=== PATIENT | male | born 1960 | race Caucasian/White ===

== ENCOUNTER 2021-12-23 09:46 | Outpatient (REF) | payer MEDICAID, SELFPAY ==
--- NOTE | ~2021-12-23 | XR_ITS ---
EXAMINATION: XR knee RT 4V, XR knee LT 4V CLINICAL INFORMATION: Reason for Exam PAIN COMPARISON: None available at the time of this dictation. TECHNIQUE: frontal, lateral, tunnel and patella sunrise views FINDINGS: BONES: There is cortical deformity in the proximal diaphysis of the right fibula, 2.2 cm, which could be posttraumatic i.e. old healed injury versus bone lesion. Limited evaluation on this knee x-ray seen at the margin of the study. JOINTS: Narrowing of joint spaces and developed osteophytes from the edges of articular surfaces suggest degenerative osteoarthritis. There is no joint effusion. 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 *Bone cortical deformity proximal diaphysis right femur concerning for possible BONE LESION versus old injury. Would recommend correlation with patient history, if no prior known fracture at this location would recommend further investigation with x-ray tibia-fibula and bone scan or contrast-enhanced MRI. (Referring physician staff is being called, to be alerted of the above findings and recommendations.) KP
--- NOTE | ~2021-12-23 | XR_ITS ---
EXAMINATION: XR knee RT 4V, XR knee LT 4V CLINICAL INFORMATION: Reason for Exam PAIN COMPARISON: None available at the time of this dictation. TECHNIQUE: frontal, lateral, tunnel and patella sunrise views FINDINGS: BONES: There is cortical deformity in the proximal diaphysis of the right fibula, 2.2 cm, which could be posttraumatic i.e. old healed injury versus bone lesion. Limited evaluation on this knee x-ray seen at the margin of the study. JOINTS: Narrowing of joint spaces and developed osteophytes from the edges of articular surfaces suggest degenerative osteoarthritis. There is no joint effusion. 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 *Bone cortical deformity proximal diaphysis right femur concerning for possible BONE LESION versus old injury. Would recommend correlation with patient history, if no prior known fracture at this location would recommend further investigation with x-ray tibia-fibula and bone scan or contrast-enhanced MRI. (Referring physician staff is being called, to be alerted of the above findings and recommendations.) KP
== END 2021-12-23 09:47 | disposition home or self-care (01) ==
LOC: HO.XRAY 09:46
PROVIDERS: PCP Internal Medicine; Visit Provider Internal Medicine
DX: G89.29 Other chronic pain (principal); M25.562 Pain in left knee
CPT/HCPCS: 73564

== ENCOUNTER → 2022-01-23 14:55 | Outpatient (BNVA) | payer MEDICAID, SELFPAY | PROVIDERS: PCP Internal Medicine; Visit Provider Surgery | DX: K40.20 Bilateral inguinal hernia, without obstruction or gangrene, not specified as recurrent (principal) | CPT/HCPCS: 99202 ==

== ENCOUNTER 2022-02-17 08:43 | Day surgery (SDC) | payer MEDICAID, SELFPAY ==
--- NOTE | 2022-02-14 10:03 | HO.ANESPROP2 ---
Documented by User: Cristina Reina NP 02/14/22 10:04 HPI - Anesthesia Eval Consult details Narrative: 62yo M for Bilateral?Hernia Repair Inguinal PMFSH Active Problems Active Problems: All Active Problems (Updated 01/23/22 @ 16:26 by Nakul Dunne MD) Bilateral inguinal hernia (Acute) Past Medical History Medical History COPD (chronic obstructive pulmonary disease) HLD (hyperlipidemia) HTN (hypertension) Surgical History Surgical History History of dental surgery History of excision of mass History of exploratory laparotomy History of wisdom tooth extraction Social History Social History Alcohol intake: never Patient Tobacco Use Status: Never used Tobacco Use of substances other than those prescribed or required for medical reasons: Yes Have you been hit, kicked, punched, or otherwise hurt by someone within the past year? If so, by whom?: No Are you DNR?: No Advance Directives: No Advance Directives Information Provided: Yes Meds Allergies Allergy/AdvReac Type Severity Reaction Status Date / Time No Known Allergies Allergy Unverified 01/23/22 15:05 Home Medications Medication Instructions Recorded Confirmed Last Taken Type acetaminophen 500 mg tablet 500 mg PO Q8H PRN 01/23/22 01/23/22 Unknown History amlodipine 10 mg tablet 10 mg PO DAILY 01/23/22 01/23/22 Unknown History atenolol 25 mg tablet 12.5 mg PO DAILY 01/23/22 01/23/22 Unknown History clonazepam 1 mg tablet 1 mg PO BEDTIME 01/23/22 01/23/22 Unknown History divalproex 500 mg tablet,extended 500 mg PO DAILY 01/23/22 01/23/22 Unknown History release 24 hr sertraline 100 mg tablet 100 mg PO QAM 01/23/22 01/23/22 Unknown History simvastatin 10 mg tablet 10 mg PO BEDTIME 01/23/22 01/23/22 Unknown History Exam Exam Date and Time: February 14, 2022 1003 Assessment and Plan Assessment Anesthesia Assessment: Chart Reviewed Documented by User: Jeri Hardy MD 02/17/22 12:29 [facility] Past Medical History Medical History COPD (chronic obstructive pulmonary disease) HLD (hyperlipidemia) HTN (hypertension) Surgical History Surgical History History of dental surgery History of excision of mass History of exploratory laparotomy History of wisdom tooth extraction History of Problems with Anesthesia: No Social History Social History Alcohol intake: never Patient Tobacco Use Status: Never used Tobacco Use of substances other than those prescribed or required for medical reasons: Yes Have you been hit, kicked, punched, or otherwise hurt by someone within the past year? If so, by whom?: No Are you DNR?: No Advance Directives: No Advance Directives Information Provided: Yes Meds Allergies Allergy/AdvReac Type Severity Reaction Status Date / Time No Known Allergies Allergy Unverified 01/23/22 15:05 Home Medications Medication Instructions Recorded Confirmed Last Taken Type acetaminophen 500 mg tablet 500 mg PO Q8H PRN 01/23/22 01/23/22 Unknown History amlodipine 10 mg tablet 10 mg PO DAILY 01/23/22 01/23/22 Unknown History atenolol 25 mg tablet 12.5 mg PO DAILY 01/23/22 01/23/22 Unknown History clonazepam 1 mg tablet 1 mg PO BEDTIME 01/23/22 01/23/22 Unknown History divalproex 500 mg tablet,extended 500 mg PO DAILY 01/23/22 01/23/22 Unknown History release 24 hr sertraline 100 mg tablet 100 mg PO QAM 01/23/22 01/23/22 Unknown History simvastatin 10 mg tablet 10 mg PO BEDTIME 01/23/22 01/23/22 Unknown History Exam Airway Mallampati Class: II TM Dist: >3cm Neck ROM: Full Loose/Missing/Broken Teeth: Yes and Upper Heart: RRR Lungs: CTA Assessment and Plan Assessment Anesthesia Assessment: Anesthesia Plan Discussed Final Anesthetic Review History of Problems with Anesthesia: No NPO: Yes ASA Class: II Final Preanesthetic Review: Meds/Allgs Chart Reviewed, Consent Obtained/Reviewed and Anes Risks/Benef Reviewed Patient Risk: Low Procedure Risk: Low Anesthetic Plan Anesthetic Plan: GA Disposition: Standard PACU
[2022-02-17] VITALS (7 sets, daily range): BP systolic 117–131; BP diastolic 57–80; PULSE 49–69; RESP 16–20; TEMP 36.1–36.8; O2SAT 94–99; BMI 27.7
--- NOTE | 2022-02-17 11:02 | MHC.SHP ---
Pre-Procedural Eval Section A Date of Service: 02/17/22 The patient is an INPATIENT: No Changes since office visit: Yes Patient answered all questions; No Cold of Flu in the past 2 weeks, No New Medical Problems and No Changes in Medication The History & Physical has been completed within 30 days and I have reviewed it.: Yes Section B Chief Complaint: hernia Allergies: Allergies Allergy/AdvReac Type Severity Reaction Status Date / Time No Known Allergies Allergy Unverified 01/23/22 15:05 Plan Diagnosis/Plan: Unchanged I have reviewed the history and physical and performed a pertinent physical examination on my patient. No changes have occurred unless specified.
--- NOTE | 2022-02-17 13:00 | W.PM.OPN ---
Operative Note Operative Note Date of Service: 02/17/22 Narrative: Preoperative diagnosis: Bilateral inguinal hernias Postoperative diagnosis: same Procedure: repair of bilateral inguinal hernias with Surgeon: Nakul Dunne MD Cash Applications Specialist: Myrna Porras PA-C; PALMER Ga Anesthesia: general LMA Indications for procedure: 62-year-old male patient presenting with palpable hernias bilaterally causing some mild discomfort which increases with lifting and straining. Examination is consistent bilateral inguinal hernias. Operative findings: Bilateral direct inguinal hernias repaired with large PHS bilaterally. Specimen: Lipoma of the cord left side Estimated blood loss: 15 mL Complications: none Procedure details: patient was brought to the OR placed in a supine position. After administering general anesthesia patient's lower abdomen was prepped with ChloraPrep and draped in a sterile fashion. A surgical time-out was called and the consent confirmed. Patient received preoperative antibiotics and Venodyne boots were in place. Local anesthesia consisting of 1% lidocaine with epinephrine was then infiltrated over the left inguinal ligament. Incision was then made with a scalpel carried out through subcutaneous tissue, past Renata's fascia and up to the external oblique aponeurosis. This was then incised with a scalpel wide with the Metzenbaum scissors. The spermatic cord was then dissected free from the surrounding inguinal canal and retracted using a Omar drain. Floor of the inguinal canal was found to be weak with a direct hernia. Fibers of the previous therapy muscle were and a small lipoma of the cord identified. This was dissected free from the surrounding cord structures and ligated. This was then sent to pathology for pathologic evaluation. Attention was then directed to the floor of the inguinal canal which was grasped with Allis clamps. The internal oblique and transversalis aponeurosis was then incised with electrocautery. The preperitoneal space was then entered. This was then widened using a open Ray-Latanya sponge. A large PHS mesh was then obtained. The circular underlay was then deployed within the preperitoneal space. The overlay was then secured to the pubic tubercle, conjoined tendon, and inguinal ligament using a 0 Polysorb suture. A slit was made in the mesh in the mesh wrapped around the spermatic cord at the internal ring. This was then secured to the shelving edge using the 0 Polysorb suture. Wounds were then irrigated with saline solution suctioned dry. 4 mL of Zenrelef was then applied over the mesh. The external oblique aponeurosis was then reapproximated using a running 2 0 Polysorb suture additional 4 mL of Zenrelef was then applied over the external oblique aponeurosis. This was then closed over by the interrupted 3-0 Polysorb sutures in the Renata's fascia. Dermis was reapproximated using interrupted 3-0 Polysorb sutures. Skin was closed using a running subcuticular 4-0 Polysorb suture. Attention was then directed to the right inguinal region. Local was infiltrated into the skin over the inguinal ligament. Incision was then made with a scalpel carried out through subcutaneous tissue past Renata's fashion up to the external oblique aponeurosis. The external oblique aponeurosis was then incised with a scalpel wide with the Metzenbaum scissors. The spermatic cord was then dissected free from the surrounding inguinal canal and retracted using a Vasu drain. Once again a direct inguinal hernia was identified. Fibers of the cremasteric muscle were in no indirect hernia could be identified. Fibers of the transversalis and internal oblique aponeurosis was then incised and a preperitoneal space identified. This was widened using a open Ray-Latanya sponge. A large PHS mesh was then obtained and the circular underlay deployed within the preperitoneal space. The overlay was then secured to the pubic tubercle, conjoined tendon, and shelving edge of the inguinal ligament using a 0 Polysorb suture. A slit was made in the mesh in the mesh wrapped around the spermatic cord at the internal ring. This was secured to the shelving edge of the inguinal ligament using a 0 Polysorb suture. Wounds were irrigated with saline solution and suctioned dry. 4 mL of Zenrelef applied over the mesh. External oblique aponeurosis was then closed using a running 2 0 Polysorb suture. An additional 4 mL of Zenrelef was then applied over the external oblique aponeurosis. Renata's fascia was then closed using interrupted 3-0 Polysorb sutures. Dermis was reapproximated using interrupted 3-0 Polysorb sutures. Skin was then closed using a running subcuticular 4-0 Polysorb suture. Sterile dressings consisting of Steri-Strips, 2 x 2 gauze and Tegaderm were then applied. The patient tolerated the procedure well. Sponge, instrument, and needle counts reported as correct. The patient was transferred to PACU in stable condition.
== END 2022-02-17 15:02 | disposition home or self-care (01) ==
PROVIDERS: PCP Internal Medicine; Visit Provider Surgery
PROC: (CPT 49505; principal; 2022-02-17 10:20)
DX: K40.20 Bilateral inguinal hernia, without obstruction or gangrene, not specified as recurrent (principal); D17.6 Benign lipomatous neoplasm of spermatic cord; J44.9 Chronic obstructive pulmonary disease, unspecified; E78.5 Hyperlipidemia, unspecified; I10 Essential (primary) hypertension; Z79.899 Other long term (current) drug therapy; Z98.890 Other specified postprocedural states
CPT/HCPCS: 49505; 88302; 88304; C1781; C9088; J0131; J0690; J1100; J1885; J2250; J2405; J3010

== ENCOUNTER 2023-05-07 08:22 | Outpatient (REF) | payer MEDICAID, SELFPAY ==
[2023-05-07 14:58] LABS: Cholesterol 140 mg/dL (<200); HDL Cholesterol 43 mg/dL (>40); LDL Cholesterol Calculated 86 mg/dL (<100); Triglycerides 57 mg/dL (<150)
== END 2023-05-07 08:23 | disposition home or self-care (01) ==
LOC: HO.CHCLDS 08:22
PROVIDERS: Visit Provider Internal Medicine
DX: E78.00 Pure hypercholesterolemia, unspecified (principal)
CPT/HCPCS: 36415; 80061

== ENCOUNTER 2024-05-20 09:02 | Outpatient (REF) | payer OTHER, SELFPAY ==
[2024-05-20 14:11] LABS: MANUAL DIFF FLAG NO
[2024-05-20 14:15] LABS: Basophils Absolute Auto 0.1 X10*3/uL (0.0-0.2); Basophils Percent Auto 0.8 % (0-2); Eosinophils Absolute Auto 0.1 X10*3/uL (0.0-0.4); Eosinophils Percent Auto 0.9 % (0-4); Hemoglobin 14.8 g/dl (14.0-18.0); Imm Gran Abs Auto 0.02 X10*3/uL (0.00-0.03); Imm Gran Pct Auto 0.3 % (0.0-0.4); Lymphocytes Absolute Auto 0.8 X10*3/uL (1.2-4.9); Lymphocytes Percent Auto 11.5 % (20-40); Mean Corpuscular HGB Conc 33.6 g/dl (31.0-36.0); Mean Corpuscular Hemoglobin 31.2 pg (27.0-33.0); Mean Corpuscular Volume 92.6 fL (80.0-98.0); Mean Platelet Volume 11.8 fL (9.4-12.4); Monocytes Absolute Auto 0.6 X10*3/uL (0.1-1.2); Monocytes Percent Auto 9.6 % (2-11); Neutrophils Percent Auto 76.9 % (45-73); Platelet Count 244 X10*3/uL (160-400); Red Blood Count 4.75 X10*6/uL (4.60-5.80); Red Cell Distribution Width 12.6 % (11.0-16.0); White Blood Count 6.5 X10*3/uL (4.8-10.8)
[2024-05-20 14:35] LABS: Alanine Aminotransferase 19 U/L (0-40); Alkaline Phosphatase 47 U/L (39-117); Anion Gap 9 (12-20); Aspartate Amino Transferase 17 U/L (5-37); Bilirubin Total 0.4 mg/dL (0.0-1.0); Blood Urea Nitrogen 19 mg/dL (9-16); Calcium 9.3 mg/dL (8.4-10.2); Carbon Dioxide 29 mmol/L (22-29); Chloride 105 mmol/L (96-108); Cholesterol 168 mg/dL (<200); Estimated Glomerular Filt Rate > 60; Glucose Random 82 mg/dL (60-115); HDL Cholesterol 46 mg/dL (>40); LDL Cholesterol Calculated 112 mg/dL (<100); Sodium 139 mmol/L (135-145); Total Protein 6.8 g/dL (6.5-8.0); Triglycerides 51 mg/dL (<150)
== END 2024-05-20 09:03 | disposition home or self-care (01) ==
LOC: HO.CHCLDS 09:02
PROVIDERS: Visit Provider Internal Medicine
DX: I10 Essential (primary) hypertension (principal); E78.00 Pure hypercholesterolemia, unspecified
CPT/HCPCS: 36415; 80053; 80061; 85025; 95250

== ENCOUNTER 2024-07-25 14:32 | Outpatient (AMB) | payer MEDICAID, SELFPAY ==
--- NOTE | 2024-07-25 14:31 | A.OFFVIS_ITS ---
Vital Signs 07/25/24 14:44 Height 5 ft 9.5 in Weight 194 lb 6 oz BMI 28.3 BP 170/82 H Blood Pressure Location Lt brachial Position Sitting Pulse 59 Intake Visit Reasons: Thrombosed Hemorrhoids Intake Note: This patient presents for Thrombosed Hemorrhoids. Pt c/o; onset 3 wks, burning sensation to the touch, has a hard lump in the area, denies any concenrs with the bm, no bleeding denies n/v/d/c Communication Skills Instructor Required: No Accompanied by: Self / Same As Patient Allergies No Known Allergies Allergy (Unverified 07/25/24 14:33) Medication List - Last Reconciled 07/25/24 by Bernard Rosenthal MD atenolol 12.5 mg PO DAILY clonazepam 1 mg PO BEDTIME divalproex ER 500 mg PO DAILY sertraline 50 mg PO DAILY simvastatin 10 mg PO BEDTIME HPI HPI Thrombosed Hemorrhoids: Details: 64-year-old male referred for thrombosed hemorrhoids. He says that about 3 weeks ago, he has noticed this hard lump outside his anus. He says that this was not tender or painful. He denies bleeding either. He denies being constipated He says that the lump has persisted. He says that really does not bother him but he wanted this checked as he was concerned that this may be a ?cancer?. [facility] Medical History (Updated 07/25/24 @ 14:52 by Bernard Rosenthal MD) Thrombosed external hemorrhoid HLD (hyperlipidemia) HTN (hypertension) COPD (chronic obstructive pulmonary disease) Surgical History History of dental surgery History of wisdom tooth extraction History of excision of mass History of exploratory laparotomy Social History Alcohol intake: never Patient Tobacco Use Status: Never used Tobacco Review of Systems Const Denies chills and Denies fever(s) Card Denies chest pain, Denies dyspnea and Denies dyspnea on exertion Resp Denies cough, Denies dyspnea and Denies dyspnea on exertion GI Denies hematochezia and Denies change in bowel habits Denies hematuria and Denies difficulty urinating Musc Denies back pain and Denies limited range of motion Neuro Denies focal weakness and Denies convulsions Psych Denies depression and Denies mood swings Physical Exam Vital Signs: Last Vital Signs Pulse 59 07/25/24 14:44 BP 170/82 H 07/25/24 14:44 BMI result Body Mass Index 28.3 Const General: comfortable and no acute distress Orientation/consciousness: patient oriented x3 Neck Neck: Yes no lymphadenopathy Resp Auscultation: clear to auscultation bilaterally Cardio Rhythm: regular rhythm GI Other: Rectal exam shows a firm external hemorrhoid well-defined, nontender, on the left side at the verge, that appeared to be consistent with a thrombosed external hemorrhoid. He also has other external hemorrhoids that are nonthrombosed Palpation (GI): Soft to palpation, nontender and no guarding Neuro General: patient oriented x3 Assessment & Plan Assessment & Plan (1) Thrombosed external hemorrhoid: Code(s): K64.5 - Perianal venous thrombosis Category: Medical Plan: Current exam suggests a thrombosed external hemorrhoid on the left side at the anal verge. I explained to him about this findings . This is well-defined. The is nontender. I advised him to do some warm soaks to the area to hasten resorption. I told him that I will see him again in about 6- 8 weeks to see how this is coming along. He says that this hemorrhoid does not bother him. He is comfortable with the plan. Coding Level of Care Code New Pt Level 3 (78875) Diagnoses Thrombosed external hemorrhoid K64.5
--- OUTSIDE RECORDS SUMMARY | 2024-07-25 14:33 | XMS_ITS | Continuity of Care Document ---
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 Engine Mechanic Name Role Phone Romana RANDOLPH, Kylah Primary Care Physician [id number] Date(s): 06/16/24 - 07/16/24 [facility] [address] [id number] Attending Physician: Magnolia Garcia Admitting Physician: Magnolia Garcia Referring Physician: Magnolia Garcia Encounter Type: Triage Allergies, Adverse Reactions, Alerts No Known Allergies Medications atenolol 25 mg oral tablet TAKE 1/2 TABLET BY MOUTH EVERY DAY Start Date: 04/01/24 Status: Ordered Repeat number: 1 clonazePAM 1 mg oral tablet TAKE ONE TABLET EVERY DAY NEEDED AGITATION Start Date: 04/01/24 Status: Ordered Repeat number: 1 divalproex sodium 250 mg oral tablet, extended release TAKE ONE TABLET EVERY NIGHT AT BEDTIME Start Date: 04/01/24 Status: Ordered Repeat number: 1 left wrist carpal tunnel syndrome left wrist carpal tunnel syndrome, See Instructions, # 1 kit, Refills 0, Tot. Refills 0, Maintenance, Rotate on and off every 2 hours while awake., 12/11/23 3:32:00 PM EDT, Supply Start Date: 12/11/23 Status: Ordered Quantity: 1.0 Unit: kit Repeat number: 1 PEG-3350 with Electrolytes [place] (Eqv-GoLYTELY) oral powder for reconstitution 240 mL, By Mouth, Every 15 minutes, until 4 liters are consumed or the rectal effluent is clear, # 4,000 mL, 0 Refills, Maintenance, 09/30/24 9:00:00 AM EST, REC Powder, [facility], Partial fill upon patient request if the prescription is for a schedule II opioid drug., 240 mL By Mouth Every 15 minutes,Instr:until 4 liters are consumed or the rectal effluent is clear, 85.2, kg, 04/01/24 10:39:00 EDT, Dry Weight Start Date: 09/30/24 Status: Ordered Quantity: 4000.0 Unit: mL Repeat number: 1 simvastatin 10 mg oral tablet TAKE ONE TABLET AT BEDTIME Start Date: 04/01/24 Status: Ordered Repeat number: 1 venlafaxine 150 mg oral capsule, extended release 1 capsule = 150 mg, TAKE ONE CAPSULE ONCE DAILY Start Date: 04/01/24 Status: Ordered Repeat number: 1 Problem List Condition Confirmation Course Effective Dates Status Health St [facility] Informant Anxiety Confirmed Active COPD (chronic obstructive pulmonary disease) Confirmed Active HTN (hypertension) Confirmed Active Social History Social History Type Response Smoking Status Smoker, current stat us unknown; Other: quit 2010; entered on: 04/01/24 Sex Sex Representation Male (finding) Patient Care team information Care Team Personnel Name: Kylah Avendano MD Position: [facility] Outreach Member Role: PCP Address: [address] [place] [address] Telecom: Care Team Related Persons Name: ANTONY MEZA Insurance Providers Guarantor name: SAMANTHA Health Plan Information #: 1 Payer: [employer] Member Number: NA Policy Number: NA Group Number: NA
--- OUTSIDE RECORDS SUMMARY | 2024-07-25 14:33 | XMS_ITS | Continuity of Care Document ---
Author Organization [facility] Address [address] [facility], [address] Floor, [address] [place] [id number]- Care Team Providers Care Attendant Child Activity Name Role Phone Romana RANDOLPH, Kylah Primary Care Physician Encounter [facility] [id number] Date(s): 06/16/24 - 07/16/24 [facility] [address], [address] [place] [id number]- Attending Physician: Magnolia Garcia Admitting Physician: Magnolia [...] kit Repeat number: 1 PEG-3350 with Electrolytes [place] (Eqv-GoLYTELY) oral powder for reconstitution 240 mL, By Mouth, Every 15 minutes, until 4 liters are consumed or the rectal effluent is clear, # 4,000 mL, 0 Refills, Maintenance, 09/30/24 9:00:00 AM EST, REC Powder, [facility], Partial fill upon patient [...] Team Personnel Name: Kylah Avendano MD Position: [facility] Outreach Member Role: PCP Address: [address] [place] [id number] Telecom: Care Team Related Persons Name: ANTONY MEZA Insurance Providers Guarantor name: SAMANTHA Health Plan Information #: 1 Payer: [employer] Member Number: NA Policy Number: NA Group Number: NA
--- OUTSIDE RECORDS SUMMARY | 2024-07-25 14:33 | XMS_ITS | Continuity of Care Document ---
Author Organization [facility] Address [address] [facility], [address] d Floor, [address] [place] [id number]- Care Team Providers Care Color Shop Helper Name Role Phone Kylah Avendano MD Primary Care Physician [phone] [id number] Date(s): 03/18/24 - 07/16/24 [facility] [address], [address] [place] [address]- Attending Physician: Not on Staff, Attending MD Referring Physician: Kylah Avendano MD Encounter Type: Pre-OutPatient One Time Allergies, Adverse Reactions, Alerts No Known Allergies [...] kit Repeat number: 1 PEG-3350 with Electrolytes [place] (Eqv-GoLYTELY) oral powder for reconstitution 240 mL, By Mouth, Every 15 minutes, until 4 liters are consumed or the rectal effluent is clear, # 4,000 mL, 0 Refills, Maintenance, 09/30/24 9:00:00 AM EST, REC Powder, [facility], Partial fill upon patient request if [...] Team Personnel Name: Kylah Avendano MD Position: [facility] Outreach Member Role: PCP Address: [address] [place] [id number] Telecom: Care Team Related Persons Name: ANTONY MEZA Insurance Providers Guarantor name: SAMANTHA Health Plan Information #: 1 Payer: [employer] Member Number: [id number] Policy Number: NA Group Number: NA Health Plan Information #: 2 Payer: [employer] Member Number: [id number] Policy Number: NA Group Number: NA
--- OUTSIDE RECORDS SUMMARY | 2024-07-25 14:34 | XMS_ITS | Continuity of Care Document ---
Author Organization [facility] Address [address] [place] [address] Phone Care Team Providers Care Cattle Manager Name Role Phone Edyta Borden APRN Unavailable Unavailabl e Allergies, Adverse Reactions, Alerts Substance Reaction Status Criticality Penicillins Active No Information erythromycin base Active No Informa tion Medications Medication Instructions Dosage Effective Dates (start - stop) Status Comments NEBIVOLOL HCL 5 MG TABS 5 Tablet TAKE ONE TABLET BY MOUTH ONCE DAILY - Active PARoxetine HCL 40 MG TABS 40 Tablet TAKE ONE TABLET BY MOUTH ONCE DAILY - Active doxycycline hyclate 100 mg tablet take 1 tablet by oral route 2 times every day 100 MG - Active Medrol (Ariel) 4 mg tablets in a dose pack take by oral route as directed per package instructions 0.00 - Active naproxen 500 mg tablet TAKE 1 TABLET BY MOUTH TWICE DAILY WITH FOOD NEEDED - Active aspirin 325 mg tablet take 1 tablet by oral route every day 325 MG - Active Mapap (acetaminophen) 500 mg capsule take 2 capsule by oral route every 6 hours as needed 1000 MG - Active Bystolic 5 mg tablet TAKE ONE TABLET BY MOUTH ONCE DAILY - No Longer Active Procedures Procedure Date ROUTINE VENIPUNCTURE GENERAL HEALTH PANEL LIPID PANEL MICRO ALBUMIN CREATININE UA ASSAY OF URINE CREATININE ASSAY OF PSA, TOTAL GLYCATED HEMOGLOBIN TEST ASSAY, GLUCOSE, BLOOD QUANT PREV VISIT, EST, AGE 40-64 ROUTINE VENIPUNCTURE GLYCATED HEMOGLOBIN TEST LIPID PANEL GENERAL HEALTH PANEL ASSAY OF PSA, TOTAL PREV VISIT, EST, AGE 40-64 ROUTINE VENIPUNCTURE GENERAL HEALTH PANEL ASSAY OF PSA, TOTAL ASSAY OF PSA, FREE BODY MASS INDEX DOCD SYST BP >= 140 MM HG6 IT DIAST BP >= 90 MM HG OFFICE/OUTPATIENT VISIT, NEW ELECTROCARDIOGRAM, COMPLETE Advance Directives Directive Yes / No Effective Date File Name No Information Encounters Encounter Description Practice Location Reason(s) For Visit Diagnoses Date Provider Providers Copied on Encounter [facility], [address], [place], [id number], [place] tel:[phone] [facility] No Information [address] [place] , [place], [id number] . tel: [phone] [facility], [address], [place], [id number], [place] tel:[phone] [facility] No Information [address] [place] , [place], [id number] . tel: [phone] [facility], [address] [place], [place], [id number], [place] tel:[phone] [facility] No Information [address] [place] , [place], [id number] . tel: [phone] PREV VISIT, EST, AGE 40-64 [facility], [address], [place], [id number], [place] tel:[phone] [facility] preventive exam (chief complaint) Body mass index [BMI] 26.0-26.9, adultEncounter for general adult medical exam without abnormal findingsAtherosc lerotic heart disease of [place] coronary artery without angina pectorisEssentia l (primary) hypertensionMajo r Depressive Disorder, Single episode, In full remissionMixed hyperlipidemiaEn counter for screening for malignant neoplasm of prostateEncounte r for screening for malignant neoplasm of colonPrediabetes [address] [place] , [place], [id number] . tel: [phone] Referring Provider: Edyta Borden, [address] [place], [address] . tel:[phone] PREV VISIT, [facility], AGE 40-64 [facility], [address], [place], [id number], [place] tel:[phone] [facility] Chronic Conditions (chief complaint)Pre ventive exam (chief complaint) Essential (primary) hypertensionAthe rosclerotic heart disease of [place] coronary artery without angina pectorisMixed hyperlipidemiaMa mike depressive disorder, single episode, unspecifiedBody mass index [BMI] 26.0-26.9, adultEncounter for general adult medical exam without abnormal findingsEncounte r for screening for malignant neoplasm of prostateEncounte r for screening for malignant neoplasm of colon [address] [place], [id number] . tel: [phone] OFFICE/OUTPA TIENT VISIT, [facility], [address], [place], [id number], [place] tel:[phone] [facility] hypertension (chief complaint)hyp erlipidemia (chief complaint)dep ression (chief complaint)rig ht shoulder pain (chief complaint) Essential (primary) hypertensionBody mass index (BMI) 28.0-28.9, adultMajor depressive disorder, single episode, unspecifiedHyper lipidemia, unspecifiedEncou nter for screening for malignant neoplasm of prostateEncounte r for screening for malignant neoplasm of colonPain in rt shoulder [address] [place] , , [id number] . tel: [phone] Family History Family Member Type Diagnosis Age At Onset Father Problem (finding) renal stones Father Problem (finding) Cardiovascular disease Father Problem (finding) hypertension Mother Problem (finding) hypertension Mother Problem (finding) Cardiovascular disease Payers Payer name Insurance type Covered green party ID Authoriza tion(s) No Information Social History Type Description Quantity Date Captured Comments Sex Male Smoking Status No Information Chief Complaint And Reason For Visit No Information Reason For Referral Reason For Referral No Information Plan Of Treatment Date Type Action Status Goal Dietary manageme nt education, guidance, and counseling completed Goal Dietary manageme nt education, guidance, and counseling completed Goal Dietary manageme nt education, guidance, and counseling completed Goal Tobacco cessation counseling completed Future Order: Lab Order FIT FOBT ([id number]), Scheduled for: Ordered History Of Present Illness Encounter Date Complaint History Of Prese nt Illness preventive exam Men's preventive visit. Patient is on a diabetic diet. Marital status: . Concern(s)/Requests Detail: 63-year-old white male presents for annual wellness exam and medication refill. Previous labs noted prediabetes, lost to follow-up. History of previous [place] and mixed hyperlipidemia, patient is uninsured and unable to afford praluent, he has previously failed trials of multiple statins severe statin myalgia. He failed to obtain fecal occult blood test to previous wellness exam, agrees to obtain today. Relevant history is negative for passive vaping exposure, alcohol use. Chronic Conditions *See Chronic Conditions HPI Preventive exam Men's preventive visit. Patient is on a healthy diet. Marital status: . Concern(s)/Requests Detail: wellness exam, hypertension with moderate control of current regimen. As mixed hyperlipidemia, previously failed statin. High dose of statins failed to lower LDL. History of CAD followed by cardiology, no recent PSA screening, no recent colorectal screening. Relevant history is positive for tobacco use. Relevant history is negative for passive smoke exposure, passive vaping exposure, alcohol use. depression This is a follow up visit. The patient reports functioning as not difficult at all. The patient does not present with anxious/fearful thoughts, depressed mood or thoughts of or suicide. Additional information: In remission with paxil taken once daily, requesting refill of this medication. right shoulder pain It occurs oc casionally. Location: right shoulder. There is no radiation. The pain is burning. Context: there is no injury. The pain is aggravated by movement. The pain is relieved by stretching. Hand Dominance: right. Additional information: Hx of right rotator cuff dysfunction, pt continues home PT exercises. hypertension The HTN started in 2017. The severity has been described as being moderate. Comorbid conditions include coronary artery disease. It is currently getting worse. Risk factors include depression, high salt intake and male gender. The hypertension is exacerbated by stress. Additional information: Hx of HTN, and CAD with CABG x 3 remote, has been out of bystolic prescribed per cardiology for 8 weeks presents with elevated blood pressure hyperlipidemia The hyperlipidem ia started in 2017. Risk factors include age over 50 and family history of CAD. The patient is adhering to medication and follow-up for their hyperlipidemia. Positive comorbidity factors include coronary artery disease and post myocardial infarction. Additional information: Previous poor tolerance to statins, continues praluent per cardiology,. Functional Status Date Functional Assessmen t No Information Instructions Date Instruction Additional Infor pinky completed applicatio n for patient assistance to obtain praluent will notify pt of outcome, Related to Mixed hyperlipidemia PSA screen obtain Related to Enc ounter for screening for malignant neoplasm of prostate obtain stool test an d return specimen to clinic Related to Encounter for screening for malignant neoplasm of colon no concentrated swee ts diet, monitor, A1c is down to 5.7 improved Related to Prediabetes monitor, followed by cardiology stable Related to Atherosclerotic heart disease of [place] coronary artery without angina pectoris stable/monitor low s odium diet continued by systolic Related to Essential (primary) hypertension depression in remiss ion on current regimen monitor, go to ER with a set of suicidal ideation Related to Major Depressive Disorder, Single episode, In full remission Dietary management e ducation, guidance, and counseling Related to Body mass index [BMI] 26.0-26.9, adult Low sodium diet, blo od pressure monitoring twice-daily with pulseprovided refill Bystolic, recommended increasing dose to 10 mg daily, patient prefers to monitor blood pressure and returned with home blood pressure log before increasing to 10 mg daily.Microalbumin urine, will review and notify result.Three month follow-up Related to Essential (primary) hypertension wellness exam comple helga today will review labs and notify result Related to Encounter for general adult medical exam without abnormal findings PSA screening today Related to E ncounter for screening for malignant neoplasm of prostate obtain FOBT and retu rn specimen to clinic for testing Related to Encounter for screening for malignant neoplasm of colon Refill provided, con tinuous prescribed, go to ER with onset of suicidal ideation, three-month follow-up Related to Major depressive disorder, single episode, unspecified Completed applicatio n for patient assistance for praluent. Advised to follow up with cardiology for samples of this medication until outcome of patient assistance application is determined. Related to Mixed hyperlipidemia Dietary management e ducation, guidance, and counseling Related to Body mass index [BMI] 26.0-26.9, adult Keep all follow-up a ppointment with cardiology Related to Atherosclerotic heart disease of [place] coronary artery without angina pectoris continue home PT exe rcisesNaproxen PRN only with food do not take routinely Follow up as needed Related to Pain in rt shoulder continue paxil as pr escribeddepression in remission refill provided Related to Major depressive disorder, single episode, unspecified resume bystolichome BP monitoring BID with pulsefollow up in two weeks for telehealth appt to review BP log and labs Related to Essential (primary) hypertension followed by Cardiolo gy continue praluent as prescribed Related to Hyperlipidemia, unspecified PSA screen today ozzie l discuss labs at follow up visit in two weeks Related to Encounter for screening for malignant neoplasm of prostate FOBT orderedreturn rosana carroll to clinic for testing Related to Encounter for screening for malignant neoplasm of colon Coping support assessment Relate d to Depression Dietary management e ducation, guidance, and counseling (procedure) Related to Essential (primary) hypertension Dietary management e ducation, guidance, and counseling Related to Body mass index (BMI) 28.0-28.9, adult Assessments Type Assessment Date No Information Patient Care Teams Name Effective Dates (start - stop) Status Members No Information
[2024-07-25 14:44] VITALS: BP 170/82; PULSE 59; BMI 28.3
== END 2024-07-25 14:51 | disposition home or self-care (01) ==
PROVIDERS: PCP Internal Medicine; Visit Provider Surgery
DX: K64.5 Perianal venous thrombosis (principal)
CPT/HCPCS: 99203

== ENCOUNTER → 2024-07-25 14:32 | Outpatient (BNVA) | payer OTHER, SELFPAY | PROVIDERS: PCP Internal Medicine; Visit Provider Surgery | DX: K64.5 Perianal venous thrombosis (principal) | CPT/HCPCS: 99202 ==

== ENCOUNTER 2024-08-18 10:31 | Outpatient (REF) | payer MEDICAID, SELFPAY ==
--- OUTSIDE RECORDS SUMMARY | 2024-08-18 11:11 | XMS_ITS | Continuity of Care Document ---
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 [place] , [place], [id number] . tel: [phone] [facility], [address], [place], [id number], [place] tel:[phone] [facility] No Information [address] [place] , [place], [id number] . tel: [phone] [facility], [address] [place], [place], [id number], [place] tel:[phone] [facility] No Information [address] [place] , [place], [id number] . tel: [phone] PREV VISIT, EST, AGE 40-64 [facility], [address], [place], [id number], [place] tel:[phone] [facility] preventive exam (chief complaint) Body mass index [BMI] 26.0-26.9, adultEncounter for general adult medical exam without abnormal findingsAtherosc lerotic heart disease of [place] coronary artery without angina pectorisEssentia l (primary) hypertensionMajo r Depressive Disorder, Single episode, In full remissionMixed hyperlipidemiaEn counter for screening for malignant neoplasm of prostateEncounte r for screening for malignant neoplasm of colonPrediabetes [address] [place] , [place], [id number] . tel: [phone] Referring Provider: Edyta Borden, [address] [place], [address] . tel:[phone] PREV VISIT, [facility], AGE 40-64 [facility], [address], [place], [id number], [place] tel:[phone] [facility] Chronic Conditions (chief complaint)Pre ventive exam (chief complaint) Essential (primary) hypertensionAthe rosclerotic heart disease of [place] coronary artery without angina pectorisMixed hyperlipidemiaMa mike depressive disorder, single episode, unspecifiedBody mass index [BMI] 26.0-26.9, adultEncounter for general adult medical exam without abnormal findingsEncounte r for screening for malignant neoplasm of prostateEncounte r for screening for malignant neoplasm of colon [address] [place] , [place], [id number] . tel: [phone] OFFICE/OUTPA TIENT VISIT, [facility], [facility], [address], [place], [id number], [place] tel:[phone] [facility] hypertension (chief complaint)hyp erlipidemia (chief complaint)dep ression (chief complaint)rig ht shoulder pain (chief complaint) Essential (primary) hypertensionBody mass index (BMI) 28.0-28.9, adultMajor depressive disorder, single episode, unspecifiedHyper lipidemia, unspecifiedEncou nter for screening for malignant neoplasm of prostateEncounte r for screening for malignant neoplasm of colonPain in rt shoulder [address] [place] , , [id number] . tel: [phone] Family History Family Member Type Diagnosis Age [...] counseling completed Goal Tobacco cessation counseling completed Goal Dietary manageme nt education, guidance, and counseling completed Future Order: Lab Order FIT FOBT ([id number]), Scheduled for: Ordered History Of Present Illness Encounter Date Complaint History Of Prese nt Illness preventive exam Men's preventive visit. Patient is on a diabetic diet. Marital status: . Concern(s)/Requests Detail: 63-year-old white male presents for annual wellness exam and medication refill. Previous labs noted prediabetes, lost to follow-up. History of previous [place] and mixed hyperlipidemia, patient is uninsured and [...] Information Instructions Date Instruction Additional Infor pinky no concentrated swee ts diet, monitor, A1c is down to 5.7 improved Related to Prediabetes obtain stool test an d return specimen to clinic Related to Encounter for screening for malignant neoplasm of colon PSA screen obtain Related to Ha ounter for screening for malignant neoplasm of prostate completed applicatio n for patient assistance to obtain praluent will notify pt of outcome, Related to Mixed hyperlipidemia depression in remiss ion on current regimen monitor, go to ER with a set of suicidal ideation Related to Major Depressive Disorder, Single episode, In full remission stable/monitor low s odium diet continued by systolic Related to Essential (primary) hypertension monitor, followed by cardiology stable Related to Atherosclerotic heart disease of [place] coronary artery without angina pectoris Dietary management e ducation, guidance, and counseling [...] general adult medical exam without abnormal findings obtain FOBT and retu rn specimen to clinic for testing Related to Encounter for screening for malignant neoplasm of colon PSA screening today Related to E ncounter for screening for malignant neoplasm of prostate Refill provided, con tinuous prescribed, go to [...] cardiology Related to Atherosclerotic heart disease of [place] coronary artery without angina pectoris continue paxil as pr escribeddepression in remission refill provided Related to Major depressive disorder, single episode, unspecified continue home PT exe rcisesNaproxen PRN only with food do not take routinely Follow up as needed Related to Pain in rt shoulder FOBT orderedreturn rosana carroll to clinic for testing Related to Encounter for screening for malignant neoplasm of colon PSA screen today ozzie ko discuss labs at follow up visit in two weeks Related to Encounter for screening for malignant neoplasm of prostate followed by Cardiolo gy continue praluent as prescribed Related to Hyperlipidemia, unspecified resume bystolichome BP monitoring BID with pulsefollow up in two weeks for telehealth appt to review BP log and labs Related to Essential (primary) hypertension Dietary management e ducation, guidance, and counseling (procedure) Related to Essential (primary) hypertension Coping support assessment Relate d to Depression Dietary management e ducation, guidance, and counseling Related to Body mass index (BMI) 28.0-28.9, adult Assessments Type Assessment Date No Information Patient Care Teams Name Effective Dates (start - stop) Status Members No Information
[2024-08-18 14:32] LABS: Anion Gap 10 (12-20); Blood Urea Nitrogen 16 mg/dL (9-16); Calcium 9.1 mg/dL (8.4-10.2); Carbon Dioxide 29 mmol/L (22-29); Chloride 105 mmol/L (96-108); Estimated Glomerular Filt Rate > 60; Glucose Random 94 mg/dL (60-115); Potassium 4.1 mmol/L (3.3-5.1); Sodium 140 mmol/L (135-145)
[2024-08-18 14:50] LABS: TSH reflex Free T4 0.57 uIU/mL (0.32-4.0)
[2024-08-18 15:04] LABS: Vitamin B12 374 pg/mL (200-900)
== END 2024-08-18 10:32 | disposition home or self-care (01) ==
LOC: HO.CHCLDS 10:31
PROVIDERS: Visit Provider Internal Medicine
DX: R41.3 Other amnesia (principal)
CPT/HCPCS: 36415; 80048; 82607; 82746; 84443

== ENCOUNTER 2024-09-07 09:37 | Outpatient (AMB) | payer OTHER, SELFPAY ==
--- NOTE | 2024-09-07 09:40 | MHC.OFFVIS ---
Vital Signs 09/07/24 09:46 Height 5 ft 9.5 in Weight 192 lb BMI 27.9 Intake Visit Reasons: 6 week follow up Thrombosed Hemorrhoids Intake Note: This patient presents for 6 week follow up Thrombosed Hemorrhoids. Pt c/o; no concerns. 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 I had seen him last July, for a large thrombosed hemorrhoid. I had recommended warm soaks to the area He says he is feeling much better. He says that the large ?lump? is gone. He denies any pain or discomfort. [facility] History Thrombosed external hemorrhoid HLD (hyperlipidemia) HTN (hypertension) COPD (chronic obstructive pulmonary disease) Surgical History History of dental surgery History of wisdom tooth extraction History of excision of mass History of exploratory laparotomy Social History Alcohol intake: never Patient Tobacco Use Status: Never used Tobacco Review of Systems Const Denies chills and Denies fever(s) Card Denies chest pain, Denies dyspnea and Denies dyspnea on exertion Resp Denies cough, Denies dyspnea and Denies dyspnea on exertion GI Denies hematochezia and Denies change in bowel habits Denies hematuria and Denies difficulty urinating Musc Denies back pain and Denies limited range of motion Neuro Denies focal weakness and Denies convulsions Psych Denies depression and Denies mood swings Physical Exam Vital Signs: BMI result Body Mass Index 27.9 Const General: comfortable and no acute distress Resp Effort & Inspection: normal respiratory effort GI Other: Rectal exam shows external hemorrhoids without any thrombosis or edema or inflammation, no tenderness Palpation (GI): Soft to palpation Assessment & Plan Assessment & Plan (1) Thrombosed external hemorrhoid: Code(s): K64.5 - Perianal venous thrombosis Category: Medical Plan: This has resolved. I no longer see any thrombosed area. Furthermore, there is no tenderness or inflammatory changes I explained to him that if his hemorrhoids bother him, he can come back to the office to review the option of hemorrhoidectomy. He says he is comfortable and states that he has hemorrhoids do not bother him at all. He can follow up on a p.r.n. basis. Coding Level of Care Code Est Pt Level 2 (28292) Diagnoses Thrombosed external hemorrhoid K64.5
[2024-09-07 09:46] VITALS: BMI 27.9
--- OUTSIDE RECORDS SUMMARY | 2024-09-07 11:12 | XMS_ITS | Encounter Summary ---
Author Organization [employer] Address [address] [facility] 7 [place] [address] Care Team Providers Care Postie Name Role Phone Kylah Avendano MD Primary Care Provider [phone] Reason for Visit * Reason Onset Date Comments CTA HEAD ORDER 08/23/2024 Encounter Details Date Type Department Care Team (Late st Contact Info) Description 08/23/2024 Telephone [employer] [address] [place] [address] Kylah Avendano MD [address] [place] [address] CTA HEAD ORDER Social History Tobacco Use Types Packs/Day Years Used Date Smoking Tobacco: Former Cigarettes Smokeless Tobacco: Never Depression Answer Date Recorded Patient Health Questionnaire-9 Score 0 05/06/2023 Housing Stability Answer Date Recorded What is your housing situation today? I have mary rowan 05/12/[address] you li ve. Do you have problems with any of the following? None of the above 05/12/2024 Food Insecurity Answer Date Recorded Within the past 12 months, y ou worried that your food would run out before you got money to buy more: Never True 05/12/2024 Within the past 12 months,th e food you bought just didn't last and you didn't have enough money to get more: Never True 10/2023 Transportation Answer Date Recorded In the past 12 months, has l ack of transportation kept you from medical appts, meetings, work or from getting things needed for daily living? No 05/12/2024 Utilities Answer Date Recorded In the past 12 months, has t he [employer], [employer], oil or water company threatened to shut off services in your home? No 05/12/2024 Depression Answer Date Recorded Patient Health Questionnaire-2 Score 0 05/06/2023 Internet Access Answer Date Recorded Internet Access Q1 Yes 05/12/2024 Internet Access Q2 Not on file 05/12/2024 Sex and Gender Information Value Date Recorded Sex Assigned at Male 06/09/2022 10:21 AM EDT Legal Sex Male 10:21 AM EDT Gender Identity Male 06/09/2022 10:21 AM EDT Sexual Orientation Straight 06/09/2022 10 :21 AM EDT documented as of this encounter Miscellaneous Notes * Telephone Encounter - Susie Humble - 08/23/2024 2:51 PM EST [place] [facility] [place] for this history is head without - please review and advise documented in this encounter Plan of Treatment Upcoming Encounters Date Type Department Care Team (Late st Contact Info) Description 09/22/2024 2:30 PM EST Office Visit [facility] CHC MED & PEDS [address] [place] [address] Kylah Avendano MD [address] [place] [address] documented as of this encounter Visit Diagnoses Not on filedocumented in this encounter Additional Health Concerns Assessment Noted Time PHQ-9 Depression Total Score: 0 05/06/20 23 3:28 PM EDT documented as of this encounter Care Teams Postie Relationship Specialty Start Date End Date Kylah Avendano MD [address] [place] [address] PCP - General Internal Medicine 08/10/18 documented as of this encounter
--- OUTSIDE RECORDS SUMMARY | 2024-09-07 11:12 | XMS_ITS | Continuity of Care Document ---
Author Organization [facility] Address [address] [place] [address] Phone Care Team Providers Care Print Graphic Designer Name Role Phone Edyta Borden APRN Unavailable [...] Diagnoses Date Provider Providers Copied on Encounter Formerly [facility], [address], [place], [id number], [place] tel:[phone] [facility] Medical No Information [address] [place] , [place], [id number] . tel: [phone] Formerly [facility], [address], [place], [id number], [place] tel:[phone] [facility] Medical No Information [address] [place] , [place], [id number] . tel: [phone] Formerly [facility], [address] [place], [place], [id number], [place] tel:[phone] [facility] Medical No Information [address] [place] , [place], [id number] . tel: [phone] PREV VISIT, EST, AGE 40-64 Formerly [facility], [address], [place], [id number], [place] tel:[phone] [facility] Medical preventive exam (chief complaint) Body mass index [BMI] 26.0-26.9, adultEncounter for general adult medical exam without abnormal findingsAtherosc lerotic heart disease of [place] coronary artery without angina pectorisEssentia l (primary) hypertensionMajo r Depressive Disorder, Single episode, In full remissionMixed hyperlipidemiaEn counter for screening for malignant neoplasm of prostateEncounte r for screening for malignant neoplasm of colonPrediabetes [address] [place] , [place], [id number] . tel: [phone] Referring Provider: Edyta Borden, [address] [place], [address] . tel:[phone] PREV VISIT, [facility], AGE 40-64 Formerly [facility], [address], [place], [id number], [place] tel:[phone] [facility] Medical Chronic Conditions (chief complaint)Pre ventive exam (chief complaint) Essential (primary) hypertensionAthe rosclerotic heart disease of [place] coronary artery without angina pectorisMixed hyperlipidemiaMa mike depressive disorder, single episode, unspecifiedBody mass index [BMI] 26.0-26.9, adultEncounter for general adult medical exam without abnormal findingsEncounte r for screening for malignant neoplasm of prostateEncounte r for screening for malignant neoplasm of colon [address] [place] , [place], [id number] . tel: [phone] OFFICE/OUTPA TIENT VISIT, [facility], [address], [place], [id number], [place] tel:[phone] [facility] Medical hypertension (chief complaint)hyp erlipidemia (chief complaint)dep ression (chief complaint)rig ht shoulder pain (chief complaint) Essential (primary) hypertensionBody mass index (BMI) 28.0-28.9, adultMajor depressive disorder, single episode, unspecifiedHyper lipidemia, unspecifiedEncou nter for screening for malignant neoplasm of prostateEncounte r for screening for malignant neoplasm of colonPain in rt shoulder [address] [place] , , [id number] . tel: [phone] Family History Family Member Type Diagnosis Age At Onset Father Problem (finding) renal stones Father Problem (finding) Cardiovascular disease Father Problem (finding) hypertension Mother Problem (finding) hypertension Mother Problem (finding) Cardiovascular disease Payers Payer name Insurance type Covered constitution party ID Authoriza tion(s) No Information Social [...] completed Future Order: Lab Order FIT FOBT ([id number]), Scheduled for: Ordered History Of Present Illness Encounter Date Complaint History Of Prese nt Illness preventive exam Men's preventive visit. Patient is on a diabetic diet. Marital status: . Concern(s)/Requests Detail: 63-year-old white male presents for annual wellness exam and medication refill. Previous labs noted prediabetes, lost to follow-up. History of previous [place] and mixed hyperlipidemia, patient is uninsured and [...] stable Related to Atherosclerotic heart disease of [place] coronary artery without angina pectoris stable/monitor low [...] cardiology Related to Atherosclerotic heart disease of [place] coronary artery without angina pectoris continue home [...]
--- OUTSIDE RECORDS SUMMARY | 2024-09-07 11:12 | XMS_ITS | Encounter Summary ---
Author Organization [employer] Address [address] [facility] 7t [place] [address] Care Team Providers Care Decontaminator Name Role Phone Kylah Avenadno MD Primary Care Provider [phone] Encounter Details Date Type Department Care Team ([facility] st Contact Info) Description 05/20/2024 Orders Only [facility] CHC MED & PEDS [address] [place], [place] [phone] Kylah Avendano MD [address] [place] [address] Bilateral impacted cerumen (Primary Dx) Social History Tobacco Use Types Packs/Day Years [...] the past 12 months, has t he electric, gas, oil or water company threatened to shut [...] AM EDT documented as of this encounter Plan of Treatment Upcoming Encounters Date Type Department Care Team (Late st Contact Info) Description 09/22/2024 2:30 PM EST Office Visit [facility] CHC MED & PEDS [address] [place] [address] Kylah Avendano MD [address] [place] [address] documented as of this encounter Visit Diagnoses Diagnosis Bilateral impacted cerumen- Primary Impacted cerumen documented in this encounter Additional Health Concerns Assessment Noted Time PHQ-9 Depression Total Score: 0 05/06/20 23 3:28 PM EDT documented as of this encounter Care Teams Decontaminator Relationship Specialty Start Date End Date Kylah Avendano MD [address] [place] [address] PCP - General Internal Medicine 08/10/18 documented as of this encounter
--- OUTSIDE RECORDS SUMMARY | 2024-09-07 11:12 | XMS_ITS | Encounter Summary ---
Author Organization [employer] Address [address] [place] [address] 7 [place] [address] Care Team Providers Care Surface Grinder Tender Name Role Phone Kylah Avendano MD Primary Care Provider [phone] Encounter Details Date Type Department Care Team ([facility] Contact Info) Description 09/11/2022 Telephone [facility] MEDICINE [address] [place], [place] [phone] Kylah Avendano MD [address] [place], [place] [phone] Social History Tobacco Use Types Packs/Day Years Used Date Smoking Tobacco: Former Cigarettes Smokeless Tobacco: Never Sex and Gender Information Value Date Recorded Sex Assigned at Male 06/09/2022 10:21 AM EDT Legal Sex Male 10:21 AM EDT Gender Identity Male 06/09/2022 10:21 AM EDT Sexual Orientation Straight 06/09/2022 10 :21 AM EDT COVID-19 Exposure Response Date Recorded In the last 10 days, have yo u been in contact with someone who was confirmed or suspected to have Coronavirus/COVID-19? No / Unsure 09/10/2022 12:58 PM EST documented as of this encounter Plan of Treatment Upcoming Encounters Date Type Department Care Team (Late Contact Info) Description 09/22/2024 2:30 PM EST Office Visit [facility] CHC MED & PEDS [address] [place], [place] [phone] Kylah Avendano MD [address] [place], [place] [phone] documented as of this encounter Visit Diagnoses Not on filedocumented in this encounter Care Teams Surface Grinder Tender Relationship Specialty Start Date End Date Kylah Avendano MD [address] [place] [address] PCP - General Internal Medicine 08/10/18 documented as of this encounter
--- OUTSIDE RECORDS SUMMARY | 2024-09-07 11:12 | XMS_ITS | Encounter Summary ---
Author Organization [employer] Address [address] [place] [address] 7 [place] [address] Care Team Providers Care Mail Handler Name Role Phone Kylah Avendano MD Primary Care Provider [phone] Encounter Details Date Type Department Care Team (Latest Contact Info) Description 02/04/2022 Abstract [facility] CONVERSIONS Dental, Provider, DDS Social History Tobacco Use Types Packs/Day Years Used Date Smoking Tobacco: Never Assessed Sex and Gender Information Value Date Recorded Sex Assigned at Male 06/09/2022 10:21 AM EDT Legal Sex Male 10:21 AM EDT Gender Identity Male 06/09/2022 10:21 AM EDT Sexual Orientation Straight 06/09/2022 10 :21 AM EDT documented as of this encounter Plan of Treatment Upcoming Encounters Date Type Department Care Team (Late st Contact Info) Description 09/22/2024 2:30 PM EST Office Visit [facility] CHC MED & PEDS [address] [place] [address] Kylah Avendano MD [address] [place] [address] documented as of this encounter Visit Diagnoses Not on filedocumented in this encounter Care Teams Mail Handler Relationship Specialty Start Date End Date Kylah Avendano MD [address] [place] [address] PCP - General Internal Medicine 08/10/18 documented as of this encounter
--- OUTSIDE RECORDS SUMMARY | 2024-09-07 11:12 | XMS_ITS | Encounter Summary ---
Author Organization [employer] Address [address] [place] [address] Care Team Providers Care Dobby Looms Pegger Name Role Phone Kylah Avendano MD Primary Care Provider [phone] Reason for Referral * Consultation (Routine) - Closed Specialty Diagnoses / Procedures Referred By Juan David potts Referred To Contact Chiropractic Medicine Diagnoses Neck pain Kylah Avendano MD [address] [place] [address] Phone: tel: fax: Family Chiropractic fax: Referral ID Status Reason Start Date Expiration Date V isits Requested Visits Authorized [id number] Closed Specialty Services Required 09/18/2023 09/17/2024 1 1 Encounter Details Date Type Department Care Team ([facility] st Contact Info) Description 09/18/2023 Orders Only [facility] CHC MED & PEDS [address] [place] [address] Kylah Avendano MD [address] [place] [address] Neck pain (Primary Dx) Social History Tobacco Use Types Packs/Day Years Used Date Smoking Tobacco: Former Cigarettes Smokeless Tobacco: Never Depression Answer Date Recorded Patient Health Questionnaire-9 Score 0 05/06/2023 Housing Stability Answer Date Recorded What is your housing situation today? I have mary rowan 05/25/[address] you li ve. Do you have problems with any of the following? None of the above 05/25/2023 Food Insecurity Answer Date Recorded Within the past 12 months, y ou worried that your food would run out before you got money to buy more: Never True 05/25/2023 Within the past 12 months,th e food you bought just didn't last and you didn't have enough money to get more: Never True Transportation Answer Date Recorded In the past 12 months, has l ack of transportation kept you from medical appts, meetings, work or from getting things needed for daily living? No 05/25/2023 Utilities Answer Date Recorded In the past 12 months, has t he electric, gas, oil or water company threatened to shut off services in your home? No 05/25/2023 Depression Answer Date Recorded Patient Health Questionnaire-2 Score 0 05/06/2023 Sex and Gender Information Value Date Recorded Sex Assigned at Male 06/09/2022 10:21 AM EDT Legal Sex Male 10:21 AM EDT Gender Identity Male 06/09/2022 10:21 AM EDT Sexual Orientation Straight 06/09/2022 10 :21 AM EDT documented as of this encounter Plan of Treatment Upcoming Encounters Date Type Department Care Team (Late st Contact Info) Description 09/22/2024 2:30 PM EST Office Visit [facility] CHC MED & PEDS [address] [place] [address] Kylah Avendano MD [address] [place] [address] Scheduled Referrals Name Type Priority Associated Diagnoses Order Schedule Referral to Chiropractic Outpatient Referral Routine Neck pain Expected: 09/18/2023 (Approximate), Expires: 09/18/2024 documented as of this encounter Visit Diagnoses Diagnosis Neck pain- Primary Cervicalgia documented in this encounter Additional Health Concerns Assessment Noted Time PHQ-9 Depression Total Score: 0 05/06/20 23 3:28 PM EDT documented as of this encounter Care Teams Dobby Looms Pegger Relationship Specialty Start Date End Date Kylah Avendano MD [address] [place] [address] PCP - General Internal Medicine 08/10/18 documented as of this encounter
--- OUTSIDE RECORDS SUMMARY | 2024-09-07 11:12 | XMS_ITS | Encounter Summary ---
Author Organization [employer] Address [address] [place] [address] Care Team Providers Care Tile Layer Supervisor Name Role Phone Kylah Avendano MD Primary Care Provider [phone] Reason for Referral * Imaging (Routine) - Authorized Specialty Diagnoses / Procedures Referred By Contac t Referred To Contact Radiology Diagnoses Memory disturbance Procedures CT Head w/o Contrast Kylah Avendano MD [address] [place] [address] Phone: tel: fax: [address] Phone: tel: fax: Referral ID Status Reason Start Date Expiration Date V isits Requested Visits Authorized [id number] Authorized 08/23/2024 08/23/2025 1 1 Encounter Details Date Type Department Care Team (Late st Contact Info) Description 08/23/2024 Orders Only [facility] CHC MED & PEDS [address] [place], [place] [phone] Kylah Avendano MD [address] [place], [place] [phone] Memory disturbance (Primary Dx) Social History Tobacco Use Types [...] Upcoming Encounters Date Type Department Care Team ([facility] st Contact Info) Description 09/22/2024 2:30 PM EST Office Visit [facility] MED & PEDS [address] [place] [address] Kylah Avendano MD [address] [place] [address] Scheduled Orders Name Type Priority Associated Diagnoses Orde r Schedule CT Head w/o Contrast Imaging Routine Memory disturbance Expected: 08/23/2024, Expires: 08/23/2025 documented as of this encounter Visit Diagnoses Diagnosis Memory disturbance- Primary Memory loss documented in this encounter Additional Health Concerns Assessment Noted Time PHQ-9 Depression Total Score: 0 05/06/20 23 3:28 PM EDT documented as of this encounter Care Teams Tile Layer Supervisor Relationship Specialty Start Date End Date Kylah Avendano MD [address] [place] [address] PCP - General Internal Medicine 08/10/18 documented as of this encounter
--- OUTSIDE RECORDS SUMMARY | 2024-09-07 11:12 | XMS_ITS | Encounter Summary ---
Author Organization [employer] Address [address] [facility] [address] 7t [place] [address] Care Team Providers Care Winder Operator Name Role Phone Kylah Avendano MD Primary Care Provider [phone] Encounter Details Date Type Department Care Team (Late st Contact Info) Description 11/30/2023 Orders Only [facility] CHC MED & PEDS [address] [place], [place] [phone] Provider, MD Estevan Social History Tobacco Use Types Packs/Day Years Used Date Smoking Tobacco: Former Cigarettes Smokeless Tobacco: Never Depression Answer Date Recorded Patient Health Questionnaire-9 Score 0 05/06/2023 Housing Stability Answer Date Recorded What is your housing situation today? I have maryhiwot rowan 05/25/[address] you [...] Description 09/22/2024 2:30 PM EST Office Visit [facility] MED & PEDS [address] [place] [address] Kylah Avendano MD [address] [place] [address] documented as of this encounter Procedures Procedure Name Priority Date/Time Associated Diagnosis Comments EMG Routine 11/27/2023 8:34 AM EDT documented in this encounter Results * EMG (11/27/2023 8:34 AM EDT) us Historical Provider NEUROLOGY ORDERABLES Merna l Result documented in this encounter Visit Diagnoses Not on filedocumented in this encounter Additional Health Concerns Assessment Noted Time PHQ-9 Depression Total Score: 0 05/06/20 23 3:28 PM EDT documented as of this encounter Care Teams Winder Operator Relationship Specialty Start Date End Date Kylah Avendano MD [address] [place] [address] PCP - General Internal Medicine 08/10/18 documented as of this encounter
--- OUTSIDE RECORDS SUMMARY | 2024-09-07 11:13 | XMS_ITS | Encounter Summary ---
Author Organization [employer] Address [address] [facility] 7t [place] [address] Care Team Providers Care Signal Constructor Name Role Phone Kylah Avendano MD Primary Care Provider [phone] Encounter Details Date Type Department Care Team (Latest Contact Info) Description 08/16/2024 Travel Social History Tobacco Use Types Packs/Day Years [...] Description 09/22/2024 2:30 PM EST Office Visit [facility] MED & PEDS [address] [place] [address] Kylah Avendano MD [address] [place] [address] documented as of this encounter Visit Diagnoses Not on filedocumented in this encounter Additional Health Concerns Assessment Noted Time PHQ-9 Depression Total Score: 0 05/06/20 23 3:28 PM EDT documented as of this encounter Care Teams Signal Constructor Relationship Specialty Start Date End Date Kylah Avendano MD [address] [place] [address] PCP - General Internal Medicine 08/10/18 documented as of this encounter
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
--- OUTSIDE RECORDS SUMMARY | 2024-09-07 11:13 | XMS_ITS | Encounter Summary ---
Author Organization [employer] Address [address] [facility] [address]t [place] [address] Care Team Providers Care Aviation Mechanic Name Role Phone Kylah Avendano MD Primary Care Provider [phone] Encounter Details Date Type Department Care Team (Latest Contact Info) Description 08/15/2024 Travel Social History Tobacco Use Types Packs/Day [...] Description 09/22/2024 2:30 PM EST Office Visit [facility] MED & PEDS [address] [place] [address] Kylah Avendano MD [address] [place] [address] documented as of this encounter Visit Diagnoses Not on filedocumented in this encounter Additional Health Concerns Assessment Noted Time PHQ-9 Depression Total Score: 0 05/06/20 23 3:28 PM EDT documented as of this encounter Care Teams Aviation Mechanic Relationship Specialty Start Date End Date Kylah Avendano MD [address] [place] [address] PCP - General Internal Medicine 08/10/18 documented as of this encounter
== END 2024-09-07 10:01 | disposition home or self-care (01) ==
PROVIDERS: PCP Internal Medicine; Visit Provider Surgery
DX: K64.5 Perianal venous thrombosis (principal)
CPT/HCPCS: 99212

== ENCOUNTER → 2024-09-07 09:37 | Outpatient (BNVA) | payer OTHER, SELFPAY | PROVIDERS: PCP Internal Medicine; Visit Provider Surgery | DX: K64.5 Perianal venous thrombosis (principal) | CPT/HCPCS: 99212 ==

== ENCOUNTER 2024-09-23 16:51 | Outpatient (REF) | payer OTHER, SELFPAY ==
--- NOTE | ~2024-09-23 | CT_ITS ---
CLINICAL HISTORY: Headache with memory disturbance CT head without contrast Comparison: None Findings: No intra-axial mass, midline shift, hydrocephalus, or acute hemorrhage. No significant atrophy-like change or white matter disease. Patchy opacification of the left-sided ethmoid air cells. Remaining paranasal sinuses and mastoid air cells are clear. The orbits are within normal limits. No skull fracture. IMPRESSION: 1. No acute intracranial findings. 2. Left-sided sinus disease. This document has been electronically signed by: Anabella Sands MD on 09/27/2024 09:05:53
--- OUTSIDE RECORDS SUMMARY | 2024-09-23 16:53 | XMS_ITS | Encounter Summary ---
Author Organization [employer] Address [address] [facility] [address] [place] [address] Care Team Providers Care Cold Mill Supervisor Name Role Phone Kylah Avendano MD Primary Care Provider [phone] Encounter Details Date Type Department Care Team ([facility] st Contact Info) Description 05/20/2024 Orders Only [facility] CHC MED & PEDS [address] [place], [place] [phone] Kylah Avendano MD [address] [place], [place] [phone] Bilateral impacted cerumen (Primary Dx) Social History [...] Care Team (Late st Contact Info) Description 10/17/2024 2:00 PM EDT Office Visit [facility] ADULT DENTAL [address] [place] [address] Ami Jeffrey 12/20/2024 4:00 PM EDT Office Visit [facility] MED & PEDS [address] [place] [address] Kylah Avendano MD [address] [place] [address] documented as of this encounter Visit Diagnoses Diagnosis Bilateral impacted cerumen- Primary Impacted cerumen documented in this encounter Additional Health Concerns Assessment Noted Time PHQ-9 Depression Total Score: 0 05/06/20 23 3:28 PM EDT documented as of this encounter Care Teams Cold Mill Supervisor Relationship Specialty Start Date End Date Kylah Avendano MD [address] [place] [address] PCP - General Internal Medicine 08/10/18 documented as of this encounter
--- OUTSIDE RECORDS SUMMARY | 2024-09-23 16:53 | XMS_ITS | Encounter Summary ---
Author Organization [employer] Address [address] [place] [address] Care Team Providers Care Pick Up Driver Name Role Phone Kylah Avendano MD Primary Care Provider [phone] Reason for Referral * Consultation (Routine) - Closed Specialty Diagnoses / Procedures Referred By Juan David potts Referred To Contact Chiropractic Medicine Diagnoses Neck pain Kylah Avendano MD [address] [place] [address] Phone: tel: fax: [facility] fax: Referral ID Status Reason Start Date Expiration Date V isits Requested Visits Authorized [id number] Closed Specialty Services Required 09/18/2023 09/17/2024 1 1 Encounter Details Date Type Department Care Team ([facility] st Contact Info) Description 09/18/[address] [facility] CHC MED & PEDS [address] [place] [address] Kylah Avendano MD [address] [place] [address] Neck pain (Primary Dx) Social History Tobacco [...] Description 10/17/2024 2:00 PM EDT Office Visit [facility] ADULT DENTAL [address] [place] [address] Ami Jeffrey 12/20/2024 4:00 PM EDT Office Visit [facility] MED & PEDS [address] [place] [address] Kylah Avendano MD [address] [place] [address] Scheduled Referrals Name Type Priority Associated Diagnoses Order Schedule Referral to Chiropractic Outpatient Referral Routine Neck pain Expected: 09/18/2023 (Approximate), Expires: 09/18/2024 documented as of this encounter Visit Diagnoses Diagnosis Neck pain- Primary Cervicalgia documented in this encounter Additional Health Concerns Assessment Noted Time PHQ-9 Depression Total Score: 0 05/06/20 23 3:28 PM EDT documented as of this encounter Care Teams Pick Up Driver Relationship Specialty Start Date End Date Kylah Avendano MD [address] [place] [address] PCP - General Internal Medicine 08/10/18 documented as of this encounter
--- OUTSIDE RECORDS SUMMARY | 2024-09-23 16:53 | XMS_ITS | Encounter Summary ---
Author Organization [employer] Address [address] [place] [address] Care Team Providers Care Imaging Engineer Name Role Phone Kylah Avendano MD Primary Care Provider [phone] Encounter Details Date Type Department Care Team (Latest Contact Info) Description 02/04/2022 Abstract [facility] CONVERSIONS Dental, Provider, DDS Social History Tobacco [...] Upcoming Encounters Date Type Department Care Team ( st Contact Info) Description 10/17/2024 2:00 PM EDT Office Visit [facility] ADULT DENTAL [address] [place] [address] Ami Jeffrey 12/20/2024 4:00 PM EDT Office Visit [facility] MED & PEDS [address] [place] [address] Kylah Avendano MD [address] [place] [address] documented as of this encounter Visit Diagnoses Not on filedocumented in this encounter Care Teams Imaging Engineer Relationship Specialty Start Date End Date Kylah Avendano MD [address] [place] [address] PCP - General Internal Medicine 08/10/18 documented as of this encounter
--- OUTSIDE RECORDS SUMMARY | 2024-09-23 16:53 | XMS_ITS | Encounter Summary ---
Author Organization [employer] Address [address] [facility] 7t [place] [address] Care Team Providers Care Pourer Metal Name Role Phone Kylah Avendano MD Primary Care Provider [phone] Encounter Details Date Type Department Care Team (Latest Contact Info) Description 09/21/2024 Travel Social History Tobacco Use Types Packs/Day Years Used Date Smoking Tobacco: Former Cigarettes Smokeless Tobacco: Never Depression Answer Date Recorded Patient Health Questionnaire-9 Score 0 09/22/2024 Patient Health Questionnaire-9 Score 0 09/22/2024 Last PHQ-9: Questionnaire Data Not on file 0 09/22/2024 Housing Stability Answer Date Recorded What is [...] Date Recorded Patient Health Questionnaire-2 Score 0 09/22/2024 Internet Access Answer Date Recorded Internet Access [...] PM EDT Office Visit [facility] ADULT DENTAL [address] [place] [address] Ami Jeffrey 12/20/2024 4:00 PM EDT Office Visit [facility] MED & PEDS [address] [place] [address] Kylah Avendano MD [address] [place] [address] documented as of this encounter Visit Diagnoses Not on filedocumented in this encounter Additional Health Concerns Assessment Noted Time PHQ-9 Depression Total Score: 0 05/06/20 23 3:28 PM EDT documented as of this encounter Care Teams Pourer Metal Relationship Specialty Start Date End Date Kylah Avendano MD [address] [place] [address] PCP - General Internal Medicine 08/10/18 documented as of this encounter
--- OUTSIDE RECORDS SUMMARY | 2024-09-23 16:53 | XMS_ITS | Encounter Summary ---
Author Organization [employer] Address [address] [place] [address] 7 [place] [address] Care Team Providers Care Patient Care Manager Name Role Phone Kylah Avendano MD Primary Care Provider [phone] Encounter Details Date Type Department Care Team ([facility] Contact Info) Description 09/11/2022 Telephone [facility] MEDICINE [address] [place], [place] [phone] Kylah Avendano MD [address] [place], [place] [phone] Social History Tobacco Use Types Packs/Day Years [...] Department Care Team (Late Contact Info) Description 10/17/2024 2:00 PM EDT Office Visit [facility] ADULT DENTAL [address] [place], [place] [phone] Ami Jeffrey 12/20/2024 4:00 PM EDT Office Visit [facility] MED & PEDS [address] [place], [place] [phone] Kylah Avendano MD [address] [place] [address] documented as of this encounter Visit Diagnoses Not on filedocumented in this encounter Care Teams Patient Care Manager Relationship Specialty Start Date End Date Kylah Avendano MD [address] [place] [address] PCP - General Internal Medicine 08/10/18 documented as of this encounter
--- OUTSIDE RECORDS SUMMARY | 2024-09-23 16:53 | XMS_ITS | Clinical Summary ---
Author Organization [employer] Address [address] [facility] 7t [place] [address] Care Team Providers Care Mobile Home Mechanic Name Role Phone Kylah Avendano MD Primary Care Provider [phone] Allergies No known active allergies Medications venlafaxine (Effexor) 37.5 MG tablet Take 37.5 mg by mouth 2 times daily. 09/05/19 23 Active atorvastatin (Lipitor) 10 MG tablet Take by mouth Once per day. Active clonazePAM (KlonoPIN) 1 MG tablet TAKE ONE TABLET EVERY DAY NEEDED AGITATION 12/27/19 22 Active divalproex (Depakote ER) 250 MG 24 hr tablet TAKE ONE TABLET EVERY NIGHT AT BEDTIME 06/03/20 21 Active PEG 3354-GNa-QgJlt-N aCl-NaSulf (PEG-3350/Electr olytes) 236 g reconstituted solution MIX DIRECTED AND DRINK 240 ml's (8oz) EVERY 15 MINUTES ALL consumed OR RECTAL effluent is CLEAR 04/01/20 24 Active atenolol (Tenormin) 25 MG tablet TAKE 1/2 TABLET BY MOUTH EVERY DAY 45 tablet 3 04/26/20 24 Active amLODIPine (Norvasc) 10 MG tablet TAKE ONE TABLET EVERY DAY 90 tablet 3 04/26/20 24 Active Diclofenac Sodium 1 % gelIndications:C hronic pain of right knee To apply to the affected area 3 times a day 100 g 05/19/20 24 Active simvastatin (Zocor) 10 MG tablet TAKE ONE TABLET AT BEDTIME 90 tablet 3 06/08/20 24 Active losartan (Cozaar) 50 MG tabletIndication s:Primary hypertension Take 1 tablet (50 mg) by mouth Once per day. 30 tablet 11 09/22/19 25 026 Active Diclofenac Sodium 1 % gelIndications:P aresthesia of left arm,Neck pain To apply to the neck 3 times a day 100 g 04/17/20 23 025 Discontinued psyllium (Metamucil Smooth Texture) 58.6 % powderIndication s:Thrombosed hemorrhoids Mix 1 heaping teaspoon in 8-12 oz water and drink once daily. May increase up to twice daily as needed. 283 g 11 07/06/20 24 025 Discontinued Hydrocortisone, Perianal, 1 % creamIndications :Thrombosed hemorrhoids Apply small amount to affected area of rectum 1-2 times daily as needed for no more than 7 days. 28.4 g 07/06/20 24 025 Discontinued losartan (Cozaar) 25 MG tabletIndication s:Primary hypertension Take 1 tablet (25 mg) by mouth Once per day. 30 tablet 11 08/15/19 025 Discontinued(I neffective) Active Problems Problem Noted Date Diagnosed Date Anxiety 05/19/2024 Dental calculus 04/19/2024 Hypertensive disorder 08/22/2021 Pure hypercholesterolemia 03/25/2011 Dilatation of aorta 01/14/2011 Pulmonary emphysema 11/14/2010 Encounters Date Type Department Care Team Description 09/22/2024 2:30 PM EST Office Visit [facility] [address] [place] [address] Kylah Avendano MD Primary hypertension (Primary Dx) 09/22/2024 Travel 09/21/2024 Travel 08/23/2024 Orders Only [facility] [address] [place] [address] Kylah Avendano MD Memory disturbance (Primary Dx) 08/23/2024 Telephone [employer] [address] [place] [phone] Kylah Avendano MD CTA HEAD ORDER 08/16/2024 Travel 08/15/2024 3:30 PM EST Office Visit [facility] [address] [place] [address] Kylah Avendano MD Primary hypertension (Primary Dx); Memory disturbance; Chronic nonintractable headache, unspecified headache type 08/15/2024 Travel 08/04/2024 Telephone [facility] [address] [place] [address] Kylah Avendano MD 07/06/2024 10:00 AM EST Office Visit [facility] [address], [place] [phone] Alison Jaimes MD Thrombosed hemorrhoids (Primary Dx) 07/06/2024 Telephone [facility] [address] [place] [address] Kylah Avendano MD pcp other 07/06/2024 Travel 07/05/2024 Telephone [facility] [address] [place] [address] Kylah Avendano MD traige from Last 3 Months Immunizations Name Administration Dates Next Due Influenza, seasonal, injectable, preservative fr ee 05/19/2024 Pfizer Covid-19 Vaccine 12+ 05/19/2024 Pneumococcal Conjugate PCV 20 05/19/2024 Tdap 01/03/2016 Zoster, Recombinant 01/28/2021,11/06/2020 Social History Tobacco Use Types Packs/Day Years Used Date Smoking Tobacco: Former Cigarettes Smokeless Tobacco: Never Tobacco Cessation:Counseling Given: Not Answered Depression Answer Date Recorded Patient Health Questionnaire-9 [...] Orientation Straight 06/09/2022 10 :21 AM EDT Last Filed Vital Signs Vital Sign Reading Time Taken Comments Blood Pressure 137/77 09/22/2024 2:00 PM EST Pulse 70 09/22/2024 2:00 PM EST Temperature 36.3 ??C (97.3 ??F) 09/22/2024 2:00 PM ES T Respiratory Rate 18 09/22/2024 2:00 PM EST Oxygen Saturation 97% 08/15/2024 3:39 PM EST Inhaled Oxygen Concentration - - Weight 85.3 kg (188 lb) 09/22/2024 2:00 PM EST Height 175.3 cm (5' 9 ) 09/22/2024 2:00 PM EST Body Mass Index 27.76 09/22/2024 2:00 PM EST Plan of Treatment Upcoming Encounters Date Type Department Care Team (Late st Contact Info) Description 10/17/2024 2:00 PM EDT Office Visit [facility] ADULT [facility] [address] [place] [address] Ami Jeffrey 12/20/2024 4:00 PM EDT Office Visit [facility] [address], [place] [phone] Kylah Avendano MD [address] [place] [address] Health Maintenance Due Date Last Done Comments CT Colonography 1961 Colonoscopy 1961 Colorectal Cancer Screening 1961 Dental Oral Exam 1961 Dental X-Ray: Full Mouth 1961 FIT DNA/Cologuard 1961 FIT 1961 FOBT 1961 HIV Screening 1961 Sigmoidoscopy 1961 Alcohol/Substance Use Screening 1973 RSV Patients and Patients Aged 60 years or older (1 - Risk 60-74 years 1-dose series) 2021 Dental Prophylaxis 10/18/2024 04/19/2024 Dental X-Ray: Bitewings 04/20/2025 04/19/20 24, 01/01/2024, 09/10/2022 SDOH Screening 05/12/2025 05/12/2024 Depression Screening 09/22/2025 09/22/2024, 09/22/19 Tobacco Screening 09/22/2025 09/22/2024 DTaP/Tdap/Td Vaccines (2 - Td or Tdap) 01/02/2026 01/03/2016 Lipid Panel 05/20/2029 05/20/2024, 04/11, 05/14/2021, Additional history exists Zoster Vaccines Completed 01/28/2021, 11/06/2020 Hepatitis C Screening Completed 12/23/2021 COVID-19 Vaccine Completed 05/19/2024, , 11/22/2020 Influenza Vaccine Completed 05/19/2024 Pneumococcal Vaccine: 50+ Years Completed 05/19/2024 HIB Vaccines Aged Out No longer eligi ble based on patient's age to complete this topic HPV Vaccines Aged Out No longer eligi ble based on patient's age to complete this topic Hepatitis A Vaccines Aged Out No long er eligible based on patient's age to complete this topic Hepatitis B Vaccines Aged Out No long er eligible based on patient's age to complete this topic IPV Vaccines Aged Out No longer eligi ble based on patient's age to complete this topic Meningococcal Vaccine Aged Out No tarun teto eligible based on patient's age to complete this topic RSV under 20 months Aged Out No longe r eligible based on patient's age to complete this topic Rotavirus Vaccines Aged Out No longer eligible based on patient's age to complete this topic Procedures Procedure Name Priority Date/Time Associated Diagnosis Comments VITAMIN B12/FOLATE, SERUM PANEL Routine 08/18/2024 10:36 AM EST Memory disturbance BASIC METABOLIC PANEL Routine 08/18/2024 10:36 AM EST Memory disturbance TSH W/REFLEX TO FT4 Routine 08/18/2024 10:36 AM EST Memory disturbance LIPID PANEL, STANDARD Routine 05/20/2024 9:05 AM EDT Pure hypercholesterolemia PROPHYLAXIS - ADULT Routine 04/19/2024 1 :00 PM EDT BITEWINGS - 2 RADIOGRAPHIC IMAGES Routine 04/19/2024 1:00 PM EDT ZZZ HISTORICAL HEPATITIS C AB W/REFL TO HCV RNA, QN, PCR Routine 12/23/2021 9:12 AM EDT from Last 3 Months or Most Recently Relevant to Health Maintenance Results * Vitamin B12/Folate, Serum Panel (08/18/2024 10:36 AM EST) Vitamin B12 374 200 - 900 pg/mL [facility] Comment:NORMAL 200-900 PG/ML INDETERMINATE 160-199 PG/ML DEFICIENT < 160 PG/ML Folate 9.0 > or = 4.0 ng/mL [facility] Comment:Reference Values:> o r = 4.0 ng/mL< 4.0 ng/mL suggests folate deficiency Methotrexate, aminopterin and folinic acid(leucovorin) are chemotherapeutic agents whose molecularstructures are similar to folate; therefore, the Architectfolate assay cannot be used for patients using these drugs. Blood Venous blood specimen / Unknown 08/18/2024 10:36 AM EST 08/18/2024 2:07 PM EST us Kylah Avendano MD LAB BLOOD ORDERABLES Final Result [facility] [address] [place] [phone] * TSH W/Reflex to FT4 (08/18/2024 10:36 AM EST) TSH reflex Free T4 0.57 0.32 - 4.0 uIU/mL [facility] Blood Venous blood specimen / Unknown 08/18/2024 10:36 AM EST 08/18/2024 2:07 PM EST us Kylah Avendano MD LAB BLOOD ORDERABLES Final Result Performing Organization Address [facility] Co de Phone Number [facility] [address] [place] [phone] * (ABNORMAL) Basic Metabolic Panel (08/18/2024 10:36 AM EST) [facility] Sodium 140 135 - 145 mmol/L [facility] Potassium 4.1 3.3 - 5.1 mmol/L [facility] Chloride 105 96 - 108 mmol/L [facility] Carbon Dioxide 29 22 - 29 mmol/L [facility] Anion Gap 10(L) 12 - 20 [facility] Urea Nitrogen (BUN) 16 9 - 16 mg/dL [facility] Creatinine, Serum 0.85 0.5 - 1.4 mg/dL [facility] Estimated Glomerular Filt Rate >60 [facility] Comment:Chronic Kidney Disea se: Estimated GFR < 60 mL/min/1.99m7Isrvwo Kidney Disease: Estimated GFR < 15 mL/min/1.73m2 Glucose 94 60 - 115 mg/dL [facility] Calcium 9.1 8.4 - 10.2 mg/dL [facility] Blood Venous blood specimen / Unknown 08/18/2024 10:36 AM EST 08/18/2024 2:07 PM EST us Kylah Avendano MD LAB BLOOD ORDERABLES Final Result Performing Organization Address [facility]/ZIP Co de Phone Number [facility] [address] [place] [phone] * (ABNORMAL) Lipid Panel, Standard (05/20/2024 9:05 AM EDT) Triglycerides 51 <150 mg/dL [facility] Comment:Desirable Triglyceri de: less than 150 mg/dLBorderline High Triglyceride 150-199 mg/dLHigh Triglyceride: 200-499 mg/dLVery High Triglyceride: greater than or equal to 5OO mg/dL Cholesterol 168 <200 mg/dL [facility] Comment:Desirable Cholestero l: less than 200 mg/dLBorderline High Cholesterol: 200-239 mg/dLHigh Cholesterol: greater than 239 mg/dL LDL Cholesterol Calculated 112(H) <100 mg/dL [facility] Comment:Desirable LDL: less than 100 mg/dLNear Optimal/Above Optimal LDL: 110- 129 mg/dLBorderline High LDL: 130-159 mg/dLHigh LDL: 160-189 mg/dLVery High LDL: greater than or equal to 190 mg/dL HDL Cholesterol 46 >40 mg/dL [facility] Comment:Desirable HDL: great er than 40 mg/dL Note: This HDL assay may give artificially low results in patients with liver disease. Blood Venous blood specimen / Unknown 05/20/2024 9:05 AM EDT 05/20/2024 2:05 PM EDT Kylah Avendano MD LAB BLOOD ORDERABLES Final Result [facility] [address] [place] [phone] * HEPATITIS C AB W/REFL TO HCV RNA, QN, PCR (12/23/2021 9:12 AM EDT) HEPATITIS C ANTIBODY NON-REACT [facility] NON-REACT [facility] INDEX 0.05 <1.00 [facility] Comment: ?? HCV antibody was non-reactive. There is no laboratory ?? evidence of HCV infection. ?? In most cases, no further action is required. However, if recent HCV exposure is suspected, a test for HCV RNA (test code 32027) is suggested. ?? For additional information please refer to http://education.beatlab/faq/XOE71n0 (This link is being provided for informational/ educational purposes only.) ?? 12/23/2021 9:12 AM EDT us Kylah Avendano MD HISTORICAL/NON ORDERABLE FILIBERTO ALCOCER Final Result [facility] [place] [address], from Last 3 Months or Most Recently Relevant to Health Maintenance Insurance [facility] FULL [facility] STAND ADULT Care Teams Mobile Home Mechanic Relationship Specialty Start Date End Date Kylah Avendano MD [address] [place] [phone] PCP - General Internal Medicine 08/10/18
--- OUTSIDE RECORDS SUMMARY | 2024-09-23 16:53 | XMS_ITS | Encounter Summary ---
Author Organization [employer] Address [address] [facility] [address] [place] [address] Care Team Providers Care Abrasive Mixer Name Role Phone Kylah Avendano MD Primary Care Provider [phone] Encounter Details Date Type Department Care Team (Late st Contact Info) Description 11/30/2023 Orders Only [facility] [address] [place], [place] [phone] Provider, MD Estevan Social History Tobacco Use [...] Description 10/17/2024 2:00 PM EDT Office Visit [facility] [address] [place] [address] Ami Jeffrey 12/20/2024 4:00 PM EDT Office Visit [facility] [address] [place] [address] Kylah Avendano MD [address] [place] [address] documented as of this encounter Procedures Procedure [...] documented as of this encounter Care Teams Abrasive Mixer Relationship Specialty Start Date End Date Kylah Avendano MD [address] [place] [address] PCP - General Internal Medicine 08/10/18 documented as of this encounter
--- OUTSIDE RECORDS SUMMARY | 2024-09-23 16:53 | XMS_ITS | Encounter Summary ---
Author Organization [employer] Address [address] [facility] 7t [place] [address] Care Team Providers Care Linux Admin Name Role Phone Kylah Avendano MD Primary Care Provider [phone] Encounter Details Date Type Department Care Team (Latest Contact Info) Description 09/22/2024 Travel Social History Tobacco Use Types Packs/Day [...] Description 10/17/2024 2:00 PM EDT Office Visit [facility] ADULT D[facility] [address] [place] [address] Ami Jeffrey 12/20/2024 4:00 PM EDT Office Visit [facility] [address] [place] [address] Kylah Avendano MD [address] [place] [address] documented as of this encounter Visit Diagnoses Not on filedocumented in this encounter Additional Health Concerns Assessment Noted Time PHQ-9 Depression Total Score: 0 09/22/19 25 2:05 PM EST documented as of this encounter Care Teams Linux Admin Relationship Specialty Start Date End Date Kylah Avendano MD [address] [place] [address] PCP - General Internal Medicine 08/10/18 documented as of this encounter
--- OUTSIDE RECORDS SUMMARY | 2024-09-23 16:53 | XMS_ITS | Encounter Summary ---
Author Organization [employer] Address [address] [facility] 7 [place] [address] Care Team Providers Care Poultry Feed Supervisor Name Role Phone Kylah Avendano MD Primary Care Provider [phone] Reason for Visit * Reason Comments Hypertension fu Encounter Details Date Type Department Care Team ([facility] st Contact Info) Description 09/22/2024 2:30 PM EST Office Visit [facility]ED[facility] [address] [place], [place] [phone] Kylah Avendano MD [address] [place] [address] Primary hypertension (Primary Dx) Social History Tobacco Use Types [...] 18 09/22/2024 2:00 PM EST Oxygen Saturation - - Inhaled Oxygen Concentration - - Weight 85.3 kg (188 lb) 09/22/2024 2:00 PM EST Height 175.3 cm (5' 9 ) 09/22/2024 2:00 PM EST Body Mass Index 27.76 09/22/2024 2:00 PM EST documented in this encounter Progress Notes * Kylah Avendano MD - 09/22/2024 2:30 PM EST Subjective Patient ID: Guy Sher is a 64 y.o. male who presents for Hypertension (fu). Hypertension This is a chronic problem. The problem is controlled. Pertinent negatives include no anxiety, blurred vision, chest pain, headaches, malaise/fatigue, neck pain, orthopnea, palpitations, peripheral edema, PND, shortness of breath or sweats. Compliant to his medication. Asymptomatic. Evaluated at the end of Sep [address] Rosenthal for his thrombosed hemorrhoids. No bump at exam. No pain reported. It was recommended warm soaks to the area. Patient was feeling better. He was recommended to come back as needed. Patient Active Problem List Diagnosis Dilatation of [...] than 7 days. 28.4 g 0 PEG 8649-WOz-GlMxn-NaCl-NaSulf (PEG-3350/Electrolytes) 236 g reconstituted solution MIX DIRECTEDAND [...] 37.5 mg by mouth 2 times daily. [DISCONTINUED] losartan (Cozaar) 25 MG tablet Take 1 tablet (25 mg) by mouth Once per day. 30 tablet 11 No current facility-administered medications on file prior to visit. No Known Allergies Review of Systems Constitutional: Negative for malaise/fatigue. Eyes: Negative for blurred vision. Respiratory: Negative for shortness of breath. Cardiovascular: Negative for chest pain, palpitations, orthopnea and PND. Musculoskeletal: Negative for neck pain. Neurological: Negative for headaches. Objective BP 137/77 (BP Location: Left arm, Patient Position: Sitting, BP Cuff Size: Large adult) Pulse 70 Temp 97.3 ??F (36.3 ??C) (Temporal) Resp 18 Ht 5' 9 (1.753 m) Wt 188 lb (85.3 kg) BMI 27.76 kg/m?? Physical Exam Constitutional: General: He is not in acute distress. Appearance: Normal appearance. He is not ill-appearing, toxic-appearing or diaphoretic. Cardiovascular: Rate and Rhythm: Normal rate. Heart sounds: No murmur heard. No friction rub. No gallop. Pulmonary: Effort: Pulmonary effort is normal. Musculoskeletal: Cervical back: Normal range of motion. Neurological: General: No focal deficit present. Mental Status: He is alert. Psychiatric: Mood and Affect: Mood normal. Assessment/Plan Diagnoses and all orders for this visit: Primary hypertension Comments: BP is above goal at home Losartan increased to 50 mg daily DASH diet Keep monitoring the BP. Orders: - losartan (Cozaar) 50 MG tablet; Take 1 tablet (50 mg) by mouth Once per day. documented in this encounter Plan of Treatment Upcoming Encounters Date Type Department Care Team (Late st Contact Info) Description 10/17/2024 2:00 PM EDT Office Visit [facility] ADULT D[facility] [address] [place] [address] Ami Jeffrey 12/20/2024 4:00 PM EDT Office Visit [facility] [address] [place] [address] Kylah Avendano MD [address] [place] [address] documented as of this encounter Visit Diagnoses Diagnosis Primary hypertension- Primary Unspecified essential hypertension documented in this encounter Additional Health Concerns Assessment Noted Time PHQ-9 Depression Total Score: 0 09/22/19 25 2:05 PM EST documented as of this encounter Care Teams Poultry Feed Supervisor Relationship Specialty Start Date End Date Kylah Avendano MD [address] [place] [address] PCP - General Internal Medicine 08/10/18 documented as of this encounter
--- OUTSIDE RECORDS SUMMARY | 2024-09-23 16:53 | XMS_ITS | Encounter Summary ---
Author Organization [employer] Address [address] [place] [address] Care Team Providers Care Tempering Kiln Tender Name Role Phone Kylah Avendano MD Primary Care Provider [phone] Reason for Referral * Imaging (Routine) - Authorized Specialty Diagnoses / Procedures Referred By Contac t Referred To Contact Radiology Diagnoses Memory disturbance Procedures CT Head w/o Contrast Kylah Avendano MD [address] [place] [address] Phone: tel: fax: [address] Phone: tel: fax: Referral ID Status Reason Start Date Expiration Date V isits Requested Visits Authorized [id number] Authorized 08/23/2024 08/23/2025 1 1 Encounter Details Date Type Department Care Team (Late st Contact Info) Description 08/23/2024 Orders Only [facility] [address] [place], [place] [phone] Kylah Avendano MD [address] [place], [place] [phone] Memory disturbance (Primary Dx) Social History Tobacco [...] [facility] [address] [place] [address] Ami Jeffrey 12/20/2024 4:00 PM EDT Office Visit [facility] [address] [place] [address] Kylah Avendano MD [address] [place] [address] Scheduled Orders Name Type Priority Associated Diagnoses Orde r Schedule CT Head w/o Contrast Imaging Routine Memory disturbance Expected: 08/23/2024, Expires: 08/23/2025 documented as of this encounter Visit Diagnoses Diagnosis Memory disturbance- Primary Memory loss documented in this encounter Additional Health Concerns Assessment Noted Time PHQ-9 Depression Total Score: 0 05/06/20 23 3:28 PM EDT documented as of this encounter Care Teams Tempering Kiln Tender Relationship Specialty Start Date End Date Kylah Avendano MD [address] [place] [phone] PCP - General Internal Medicine 08/10/18 documented as of this encounter
--- OUTSIDE RECORDS SUMMARY | 2024-09-23 16:53 | XMS_ITS | Continuity of Care Document ---
Author Organization [facility] Address [address] [place] [address] Phone Care Team Providers Care Appliance Service Supervisor Name Role Phone Edyta Borden APRN Unavailable [...] TWICE DAILY WITH FOOD NEEDED - Active Mapap (acetaminophen) 500 mg capsule take 2 capsule by oral route every 6 hours as needed 1000 MG - Active aspirin 325 mg tablet take 1 tablet by oral route every day 325 MG - Active Bystolic 5 mg tablet [...] Diagnoses Date Provider Providers Copied on Encounter [facility], [address], [place], [id number], [place] tel:[phone] [facility] No Information [address] [place] , [place], [id number] . tel: [phone] [facility], [address], [place], [id number], [place] tel:[phone] [facility] No Information [address] [place] , [place], [id number] . tel: [phone] [facility], [address] [place], [place], [id number], [place] tel:[phone] [facility] No Information [address] [place] , [place], [id number] . tel: [phone] PREV VISIT, EST, AGE 40-64 [facility], [address], [place], [id number], [place] tel:[phone] [facility] preventive exam (chief complaint) Body mass index [BMI] 26.0-26.9, adultEncounter for general adult medical exam without abnormal findingsAtherosc lerotic heart disease of [place] coronary artery without angina pectorisEssentia l (primary) hypertensionMajo r Depressive Disorder, Single episode, In full remissionMixed hyperlipidemiaEn counter for screening for malignant neoplasm of prostateEncounte r for screening for malignant neoplasm of colonPrediabetes [address] [place] , [place], [id number] . tel: [phone] Referring Provider: Edyta Borden, [address] [place], [address] . tel:[phone] PREV VISIT, [facility], AGE 40-64 [facility], [address], [place], [id number], [place] tel:[phone] [facility] Chronic Conditions (chief complaint)Pre ventive exam (chief complaint) Essential (primary) hypertensionAthe rosclerotic heart disease of [place] coronary artery without angina pectorisMixed hyperlipidemiaMa mike depressive disorder, single episode, unspecifiedBody mass index [BMI] 26.0-26.9, adultEncounter for general adult medical exam without abnormal findingsEncounte r for screening for malignant neoplasm of prostateEncounte r for screening for malignant neoplasm of colon [address] [place] , [place], [id number] . tel: [phone] OFFICE/OUTPA TIENT VISIT, [facility], [address], [place], [id number], [place] tel:[phone] [facility] hypertension (chief complaint)hyp erlipidemia (chief complaint)dep ression (chief complaint)rig ht shoulder pain (chief complaint) Essential (primary) hypertensionBody mass index (BMI) 28.0-28.9, adultMajor depressive disorder, single episode, unspecifiedHyper lipidemia, unspecifiedEncou nter for screening for malignant neoplasm of prostateEncounte r for screening for malignant neoplasm of colonPain in rt shoulder [address] [place] , , [id number] . tel: [phone] Family History Family Member Type Diagnosis Age At Onset Father Problem (finding) renal stones Father Problem (finding) Cardiovascular disease Father Problem (finding) hypertension Mother Problem (finding) hypertension Mother Problem (finding) Cardiovascular disease Payers Payer name Insurance type Covered libertarian ID Authoriza tion(s) No Information Social History [...] completed Future Order: Lab Order FIT FOBT ([id number]), Scheduled for: Ordered History Of Present Illness Encounter Date Complaint History Of Prese nt Illness preventive exam Men's preventive visit. Patient is on a diabetic diet. Marital status: . Concern(s)/Requests Detail: 63-year-old white male presents for annual wellness exam and medication refill. Previous labs noted prediabetes, lost to follow-up. History of previous [place] and mixed hyperlipidemia, patient is uninsured and [...] stable Related to Atherosclerotic heart disease of [place] coronary artery without angina pectoris stable/monitor low [...] cardiology Related to Atherosclerotic heart disease of [place] coronary artery without angina pectoris continue paxil [...] to Body mass index (BMI) 28.0-28.9, adult Coping support assessment Relate d to Depression Assessments Type Assessment Date No Information Patient Care Teams Name Effective Dates (start - stop) Status Members No Information
== END 2024-09-23 16:52 | disposition home or self-care (01) ==
LOC: HO.CT 16:51
PROVIDERS: PCP Internal Medicine; Visit Provider Internal Medicine
DX: R41.3 Other amnesia (principal)
CPT/HCPCS: 70450

== ENCOUNTER → 2024-09-23 16:53 | Outpatient (BNV) | payer OTHER, SELFPAY | PROVIDERS: PCP Internal Medicine; Visit Provider Radiology Diagnostic Radiology | DX: J34.89 Other specified disorders of nose and nasal sinuses (principal) | CPT/HCPCS: 70450 ==